=== PATIENT | male | born 1960 | race Two or more races ===

== ENCOUNTER → 2022-06-30 | Outpatient (CLI) | payer BC ==
[2022-06-30 09:43] LABS: Urine Bacteria NONE SEEN /hpf (None Seen); Urine Blood Negative /uL (Negative); Urine Mucus FEW (None Seen); Urine Specific Gravity 1.024 (1.001-1.035); Urine WBC 1 /hpf (0 - 3)
[2022-06-30 10:38] LABS: Chloride 107 mmol/L (98-107); Potassium 4.5 mmol/L (3.5-5.1); Sodium 133 mmol/L (136-145)
[2022-06-30 10:46] LABS: Alanine Aminotransferase 28 U/L (16-61); Albumin 3.8 g/dL (3.4-5.0); Alkaline Phosphatase 155 U/L (45-117); Anion Gap 4 (5-15); Aspartate Aminotransferase 17 U/L (15-37); BUN/Creatinine Ratio 16.1 (10.0-20.0); Bilirubin, Total 0.9 mg/dL (0.2-1.0); Blood Urea Nitrogen 19 mg/dL (7-18); Calcium 9.1 mg/dL (8.5-10.1); Carbon Dioxide 22 mmol/L (21-32); Cholesterol 142 mg/dL (< 200); GFR African American 81 mL/min; GFR Non-African American 67 mL/min; Glucose 257 mg/dL (74-106); HDL Cholesterol 31 mg/dL (40-59); Total Protein 7.7 g/dL (6.4-8.2); Triglycerides 561 mg/dL (< 150)
== END | disposition home or self-care (01) ==
LOC: LAB 09:09
PROVIDERS: ATTEND Nurse Practitioner
DX: I10 Essential (primary) hypertension (principal); E78.5 Hyperlipidemia, unspecified; E11.9 Type 2 diabetes mellitus without complications
CPT/HCPCS: 36415; 80053; 80061; 81001; 82043; 82570; 83036

== ENCOUNTER 2022-10-22 06:18 | Day surgery (SDC) | payer BC ==
[2022-10-21 11:17] LABS: Basophils # (auto) 0 10 ^3/uL (0-0.2); Basophils % (auto) 0.6 % (0.0-2.0); Eosinophils # (auto) 0.1 10 ^3/uL (0-0.8); Eosinophils % (auto) 1.6 % (0.0-7.0); Hematocrit 42.4 % (41.0-53.0); Hemoglobin 14.2 g/dL (13.5-17.5); Lymphocytes # (auto) 1.3 10 ^3/uL (0.4-5.4); Lymphocytes % (auto) 24.6 % (10.0-50.0); Mean Corpuscular Hemoglobin 29.7 pg (28.0-32.0); Mean Corpuscular Hgb Conc. 33.6 g/dL (32.0-36.0); Mean Corpuscular Volume 88.3 fL (80.0-100.0); Monocytes # (auto) 0.5 10 ^3/uL (0-1.3); Monocytes % (auto) 9.6 % (0.0-12.0); Neutrophils # (auto) 3.3 10 ^3/uL (1.6-8.6); Neutrophils % (auto) 63.6 % (37.0-80.0); Nucleated Red Blood Cells % 0.1 %; Red Cell Distribution Width 14.6 % (11.8-14.3); White Blood Cell 5.2 10^3/uL (4.4-10.8)
[2022-10-21 11:25] LABS: INR 0.98 (0.9-1.15); Partial Thromboplastin Time 26.8 SEC (24.5-34.5); Prothrombin Time 10.3 sec (9.3-11.8)
[2022-10-21 11:47] LABS: Alanine Aminotransferase 27 U/L (7-40); Alkaline Phosphatase 85 U/L (46-116); Anion Gap 9.5 (5-15); BUN/Creatinine Ratio 14.2 (10.0-20.0); Blood Urea Nitrogen 21 mg/dL (9-23); Calcium 10.1 mg/dL (8.5-10.1); Carbon Dioxide 26.5 mmol/L (20-30); Chloride 100 mmol/L (98-107); Glucose 265 mg/dL (74-106); Potassium 4.1 mmol/L (3.5-5.1); Sodium 136 mmol/L (136-145)
[2022-10-21 11:49] LABS: Albumin 4.7 g/dL (3.2-4.8); Aspartate Aminotransferase 25 U/L (13-40); Bilirubin, Total 0.9 mg/dL (0.2-1.0); Total Protein 7.6 g/dL (5.7-8.2)
[2022-10-21 13:01] LABS: Urine Bacteria NONE SEEN /hpf (None Seen); Urine WBC <1 /hpf (0 - 3)
[2022-10-21 13:05] LABS: Urine Clarity HAZY (Clear); Urine Color Yellow (Yellow); Urine Protein, UAD TRACE (Negative); Urine Specific Gravity 1.029 (1.001-1.035)
[2022-10-21 13:06] LABS: Urine Blood Negative /uL (Negative); Urine Urobilinogen Normal (Negative); Urine pH 5.5 (5.0-8.0)
[~2022-10-22] VITALS: Ht 165.1 cm; Wt 70.8 kg
[~2022-10-22 06:18] MED LIST: ASPI81CH59 PO; BENA40TA70 PO; CLON0.1T PO; FENO160T PO; HYDR-4297 PO; METF-370 PO; METO-289 PO
[2022-10-22] MEDS ORDERED: ceFAZolin 1GM/50ML 100 ML IV ONE (06:41)
[2022-10-22] MEDS ORDERED: BUPIVACAINE IMPLANT 3x100mg IL ONE (06:45)
[2022-10-22] MEDS ORDERED: SUCCINYLCHOLINE CHLORIDE 20 MG/ML 10ML VIAL IV ONE (07:03)
[2022-10-22] MEDS ORDERED: ROCURONIUM 10MG/ML 10ML VIAL IV ONE (07:03)
[2022-10-22] MEDS ORDERED: fentaNYL CITRATE 100 MCG/2 ML VL ONE ×2 (07:08→07:39)
[2022-10-22] MEDS ORDERED: PROPOFOL 10 MG/ML 20 ML IV ONE ×2 (07:08→09:05)
[2022-10-22] MEDS ORDERED: ONDANSETRON HCL 4 MG/2 ML VIAL ONE ×2 (07:08→08:16)
[2022-10-22] MEDS ORDERED: MIDAZOLAM HCL 2MG/2ML 2ml VIAL (1mg/ml) ONE ×2 (07:08→07:39)
[2022-10-22] MEDS ORDERED: SODIUM CHLORIDE LOCK 20 ML ONE (07:08)
[2022-10-22] MEDS ORDERED: LIDOCAINE 1% HCL (LOCAL ANESTH.) INJ 20ML MDV ONE (07:30)
[2022-10-22] MEDS ORDERED: BUPIVACAINE 0.25% INJ 50ML VIAL ONE (08:07)
[2022-10-22] MEDS ORDERED: LIDOCAINE 1%-Mpf/Epinephrine 1:200,000 30ml VIAL ONE (08:07)
[2022-10-22] MEDS ORDERED: ePHEDrine SULFATE 50 MG/ML AMP ONE (08:16)
[2022-10-22] MEDS ORDERED: ONDANSETRON HCL 4 MG/2 ML VIAL IV PRN (08:45)
[2022-10-22] MEDS ORDERED: HYDROmorphone HCL 2 MG/ML VL/or syr IV PRN ×2 (08:45)
[2022-10-22] MEDS ORDERED: ACE3T PO (09:02)
[2022-10-22] MEDS ORDERED: GLYCOPYRROLATE 0.2 MG/ML 1ML VIAL ONE (09:05)
[2022-10-22] MEDS ORDERED: NEOSTIGMINE 1 MG/ML INJ (10mg/10ML VIAL) ONE (09:05)
[2022-10-22 09:50] VITALS: BP 120/73; PULSE 58; RESP 13; O2SAT 95
== END 2022-10-22 09:45 | disposition home or self-care (01) ==
LOC: SUR 06:18
PROVIDERS: ATTEND Surgery
DX: K40.91 Unilateral inguinal hernia, without obstruction or gangrene, recurrent (principal); E11.9 Type 2 diabetes mellitus without complications; Z79.84 Long term (current) use of oral hypoglycemic drugs
CPT/HCPCS: 36415; 49520; 80053; 81001; 82962; 85025; 85610; 85730; 86850; 86900; 86901; C9089; J0330; J0690; J1170; J2001; J2250; J2405; J2704; J3010; J3490; 88302

== ENCOUNTER 2022-10-24 12:59 | Emergency (ER) | payer BC ==
[~2022-10-24] VITALS: Ht 165.1 cm; Wt 70.1 kg
[2022-10-24 17:12] VITALS: BP 117/78; PULSE 72; RESP 16; TEMP 98.2; O2SAT 97
== END 2022-10-24 17:15 | disposition home or self-care (01) ==
LOC: ER 12:59
DX: K91.840 Postprocedural hemorrhage of a digestive system organ or structure following a digestive system procedure (principal); Z79.899 Other long term (current) drug therapy; Z79.82 Long term (current) use of aspirin

== ENCOUNTER → 2022-11-07 | Outpatient (CLI) | payer BC ==
[2022-11-07 10:59] LABS: Basophils # (auto) 0 10 ^3/uL (0-0.2); Basophils % (auto) 0.7 % (0.0-2.0); Eosinophils # (auto) 0.1 10 ^3/uL (0-0.8); Eosinophils % (auto) 1.4 % (0.0-7.0); Hematocrit 38.6 % (41.0-53.0); Hemoglobin 13.3 g/dL (13.5-17.5); Lymphocytes # (auto) 1.3 10 ^3/uL (0.4-5.4); Lymphocytes % (auto) 24.5 % (10.0-50.0); Mean Corpuscular Hemoglobin 30.4 pg (28.0-32.0); Mean Corpuscular Hgb Conc. 34.5 g/dL (32.0-36.0); Monocytes # (auto) 0.5 10 ^3/uL (0-1.3); Monocytes % (auto) 9.2 % (0.0-12.0); Neutrophils # (auto) 3.5 10 ^3/uL (1.6-8.6); Neutrophils % (auto) 64.2 % (37.0-80.0); Nucleated Red Blood Cells % 0.1 %; Red Blood Cells 4.38 10^6/uL (4.5-5.90); Red Cell Distribution Width 14.5 % (11.8-14.3); White Blood Cell 5.4 10^3/uL (4.4-10.8)
[2022-11-07 11:46] LABS: Alanine Aminotransferase 21 U/L (7-40); Alkaline Phosphatase 109 U/L (46-116); Aspartate Aminotransferase 15 U/L (13-40); Calcium 9.7 mg/dL (8.5-10.1); Carbon Dioxide 26 mmol/L (20-30)
[2022-11-07 11:47] LABS: Albumin 4.6 g/dL (3.2-4.8)
[2022-11-07 11:48] LABS: Cholesterol 154 mg/dL (< 200); Glucose 254 mg/dL (74-106)
[2022-11-07 11:49] LABS: BUN/Creatinine Ratio 13.5 (10.0-20.0); Blood Urea Nitrogen 20 mg/dL (9-23); Triglycerides 584 mg/dL (< 150)
[2022-11-07 11:51] LABS: Bilirubin, Total 0.8 mg/dL (0.2-1.0); HDL Cholesterol 27 mg/dL (40-59); Total Protein 7.7 g/dL (5.7-8.2)
[2022-11-07 12:24] LABS: Anion Gap 9 (5-15); Chloride 101 mmol/L (98-107); Potassium 4.1 mmol/L (3.5-5.1); Sodium 136 mmol/L (136-145)
== END | disposition home or self-care (01) ==
LOC: LAB 10:31
PROVIDERS: ATTEND Nurse Practitioner
DX: E11.9 Type 2 diabetes mellitus without complications (principal); E78.5 Hyperlipidemia, unspecified
CPT/HCPCS: 36415; 80053; 80061; 83036; 85025